=== PATIENT | female | born 1990 | race Caucasian/White ===

== ENCOUNTER 2017-01-20 16:05 | Outpatient (CLI) | payer BC ==
[~2017-01-20] VITALS: Ht 160 cm; Wt 99.0 kg
[~2017-01-20 16:05] MED LIST: AMT50 PO; MISC-696; MTR600X PO; PRENTAB26 PO
[2017-01-20 17:24] VITALS: Ht 160 cm; Wt 99.0 kg
--- NOTE | 2017-01-22 10:23 | EDITING REQUIRED CODING QUERY ---
DIAGNOSIS NEEDED To promote full compliance with coding requirements relating to patient care, physician participation is requested in all cases of commanding officer motorized squad uncertainty. Please assist us with the question(s) below: Coding Question: The patient received care in labor and delivery on 01/20/17 as noted within the record. Please document the diagnosis that is being addressed by the medication/treatment. Provider Response: DIAGNOSIS: Contractions, rule out labor Thank you for your assistance, Ester Cruz - Clinical Sciences Professor
== END 2017-01-20 17:28 | disposition home or self-care (01) ==
LOC: C.OPB 16:05 → C.LD 16:05 → C.OPB 17:28
PROVIDERS: ATTEND Obstetrics & Gynecology
DX: O62.9 Abnormality of forces of labor, unspecified (principal); Z3A.39 39 weeks gestation of pregnancy

== ENCOUNTER 2017-01-25 06:53 | Outpatient (CLI) | payer BC ==
[~2017-01-25] VITALS: Ht 157.5 cm; Wt 95.5 kg
[2017-01-25 07:09] VITALS: Ht 157.5 cm; Wt 95.5 kg
[2017-01-25] MEDS ORDERED: LACTATED RINGER'S 1000ML 500 ML IV ONE (07:50)
[2017-01-25] MEDS ORDERED: LACTATED RINGER'S 1000ML 1,000 ML IV SCH (07:50)
[2017-01-25] MEDS ORDERED: ONDANSETRON INJ 2 MG/ML 2 ML VIAL IV PRN (08:00)
[2017-01-25 08:47] LABS: BASO % 0.2 %; BASO ABS # 0.02 K/uL (0-0.2); COMPLETE YES; EOS % 0.3 %; HEMATOCRIT 31.9 % (37-47); IG% 0.3 %; LYMPH % 11.1 %; LYMPH ABS # 1.21 K/uL (1.2-3.4); MEAN CELL VOLUME 84.2 fL (80-100); MEAN CORPUSCULAR HGB CONC 33.2 g/dl (32-36); MEAN PLATELET VOLUME 10.9 fL (7.4-10.4); MONO % 5.5 %; NEUT % 82.6 %; PLATELET COUNT 228 K/uL (130-400); RED BLOOD COUNT 3.79 M/uL (4.2-5.4)
[2017-01-25 09:07] LABS: ALT/SGPT 14 U/L (12-78); AST/SGOT 12 U/L (15-37); BLOOD UREA NITROGEN 5 mg/dl (7-18); BUN/CREATININE RATIO 10.8 (10-20); CALCIUM 8.4 mg/dl (8.5-10.1); CARBON DIOXIDE 24 mmol/L (21-32); CHLORIDE 102 mmol/L (98-107); GLUCOSE 75 mg/dl (70-99); POTASSIUM 3.9 mmol/L (3.5-5.1); SODIUM 134 mmol/L (136-145); URIC ACID 4.2 mg/dl (2.6-7.2)
--- NOTE | 2017-01-28 08:15 | EDITING REQUIRED CODING QUERY ---
DIAGNOSIS NEEDED To promote full compliance with coding requirements relating to patient care, physician participation is requested in all cases of varnish thinner uncertainty. Please assist us with the question(s) below: Coding Question: The patient received care in labor and delivery on 01/25/17 as noted within the record. Please document the diagnosis that is being addressed by the medication/treatment. Provider Response: DIAGNOSIS: Contractions rule out labor, nausea Thank you for your assistance, Ester Cruz - Entertainment Reporter
== END 2017-01-25 12:47 | disposition home or self-care (01) ==
LOC: C.OPB 06:53 → C.LD 06:54 → C.OPB 12:47
PROVIDERS: ATTEND Obstetrics & Gynecology
DX: O62.9 Abnormality of forces of labor, unspecified (principal); Z3A.40 40 weeks gestation of pregnancy

== ENCOUNTER 2017-01-27 23:37 | Inpatient (IN) | payer BC ==
[~2017-01-27] VITALS: Ht 160 cm; Wt 94.5 kg
[~2017-01-27 23:37] MED LIST changes: -AMT50 PO; -MISC-696; -MTR600X PO
[2017-01-27] MEDS ORDERED: LACTATED RINGER'S 1000ML 1,000 ML IV PRN (23:54)
[2017-01-27] MEDS ORDERED: LACTATED RINGER'S 1000ML 1,000 ML IV SCH (23:54)
[2017-01-28 00:15] LABS: HEMATOCRIT 31.5 % (37-47); MEAN CELL VOLUME 84.2 fL (80-100); MEAN CORPUSCULAR HEMOGLOBIN 28.3 pg (25-34); MEAN CORPUSCULAR HGB CONC 33.7 g/dl (32-36); MEAN PLATELET VOLUME 10.7 fL (7.4-10.4); PLATELET COUNT 213 K/uL (130-400); RED BLOOD COUNT 3.74 M/uL (4.2-5.4); WHITE BLOOD COUNT 8.57 K/uL (4.8-10.8)
--- NOTE | 2017-01-28 00:16 | Progress Note ---
Progress Note Date of Service Jan 28, 2017. Progress Note Admit Note 26 F P1001 at 40.2 weeks admitted in active labor. Cervix 5-6/100/0/vertex. Membranes intact. GBS is negative. Will admit in labor. Patient is not planning for any medication or epidural.
--- NOTE | 2017-01-28 00:25 | Progress Note ---
Progress Note Date of Service Jan 28, 2017. Progress Note cervix /+1 T Cat1
[2017-01-28 00:26] VITALS: Ht 160 cm; Wt 94.5 kg
[2017-01-28] MEDS ORDERED: OXYTOCIN 30 UNITS/500ML NSS IV ONE (00:26)
[2017-01-28] MEDS ORDERED: HYDROCORTISONE ACETATE 25 MG SUPP PR PRN (01:00)
[2017-01-28] MEDS ORDERED: BENZOCAINE 20% AER SPR 82.5 GM CAN EXT PRN (01:00)
[2017-01-28] MEDS ORDERED: OXYCODONE/ACETAMINOPHEN 5-325 TAB PO PRN (01:00)
[2017-01-28] MEDS ORDERED: SUPERCREAM 0.870 % 15GM JAR EXT PRN (01:00)
[2017-01-28] MEDS ORDERED: OXYTOCIN 30 UNITS/500ML NSS IV PRN (01:00)
[2017-01-28] MEDS ORDERED: ACETAMINOPHEN 325 MG TAB PO PRN (01:00)
[2017-01-28] MEDS ORDERED: LACTATED RINGER'S 1000ML 1,000 ML IV SCH (01:00)
[2017-01-28] MEDS ORDERED: LANOLIN OINT EXT PRN ×2 (01:00)
[2017-01-28] MEDS ORDERED: IBUPROFEN 600 MG TAB PO PRN (01:00)
[2017-01-28] MEDS ORDERED: ACETAMINOPHEN/CODEINE 300/30MG TAB PO PRN ×2 (01:00)
--- NOTE | 2017-01-28 01:07 | Progress Note ---
Progress Note Date of Service Jan 28, 2017. Progress Note Delivery Note live female over intact perineum BUDDY with Apgars 8/9 nuchal cord x1 reduced at delivery. Delayed cord clamping followed by cord blood and spontaneous delivery of intact placenta. No tears. EBL 100 ml. Final sponge and instrument count are correct. Mom and baby stable.
[2017-01-28 03:40] VITALS: BP 121/80; PULSE 84; TEMP 36.7
[2017-01-28] MEDS ORDERED: INFLUENZA ADMINISTRATION CHARGE ONE (04:00)
[2017-01-28] MEDS ORDERED: INFLUENZA VIRUS QUAD VACCINE 0.5 ML SYR IM. ONE (04:00)
[2017-01-28 07:00] VITALS: BP 133/82; PULSE 82; TEMP 36.7; O2SAT 99
[2017-01-28] MEDS: PRENATAL VITAMIN TAB PO SCH (08:23)
[2017-01-28] MEDS: DOCUSATE SODIUM 100 MG CAP PO SCH ×2 (08:23→20:41)
[2017-01-28] MEDS: FERROUS SULFATE 325 MG TAB PO SCH (08:23)
[2017-01-28 11:40] VITALS: BP 134/84; PULSE 82; TEMP 36.8; O2SAT 97
[2017-01-28 16:00] VITALS: BP 146/90; PULSE 84; TEMP 36.9; O2SAT 97
[2017-01-28] MEDS ORDERED: BISACODYL 5 MG TABEC PO SCH (20:00)
[2017-01-28 20:45] VITALS: BP 128/86; PULSE 88; TEMP 36.9; O2SAT 97
[2017-01-28 23:05] VITALS: BP 127/87; PULSE 82; TEMP 36.7
[2017-01-29 06:49] LABS: HEMATOCRIT 29.6 % (37-47)
[2017-01-29] MEDS ORDERED: BISACODYL 10 MG SUPP PR PRN (07:00)
--- NOTE | 2017-01-29 07:02 | Discharge Instructions ---
Discharge Instructions Admission Reason for Admission: Check Labor Discharge Discharge Diagnosis / Problem: Vaginal delivery Discharge Goals Goal(s): Routine recovery after delivery Medications Continue Dispensed Medications: supercream, dermaplast, tucks, lansinoh Activity Recommendations Activity Limitations: per Instructions/Follow-up section . Instructions / Follow-Up Instructions / Follow-Up ACTIVITY RECOMMENDATIONS: * Gradual return to full activity over the next 2-3 weeks. * No lifting - nothing heavier than baby over the next 2-3 weeks. * Do not engage in vigorous exercise, sexual activity or sports until cleared by your physician. * Do not drive or operate any motorized equipment until cleared by your physician. * You may shower/bathe daily. BREAST CARE: If you are not breast feeding: * Wear a supportive bra 24 hours a day for one to two weeks. * Avoid stimulating your breasts and nipples as much as possible during the first few weeks after delivery. * When taking a shower, have the warm water hit your back, not breasts. * When your breasts feel full, apply ice packs. Usually three to four times a day helps ease the discomfort. * Take a mild pain medication (Tylenol/Motrin) when you are uncomfortable. If breast feeding: * Use breast milk to lubricate nipples. Lansinoh cream may be used for sore nipples. You do not need to remove cream prior to breast feeding. If using a different brand of cream, check the label for directions regarding removal of cream prior to nursing. * Wear a supportive bra. * If having problems with breasts or breast feeding, call a obiee consultant or your health care provider. EPISIOTOMY CARE: After delivery, if you have an episiotomy (stitches), the following steps will ease discomfort and aid healing. * For the first 24 hours after delivery, place ice packs next to your episiotomy to help reduce swelling. * After the first 24 hour-period, sitz baths, either portable or in the tub, are suggested. A shower with a shower arm sprayed over the episiotomy may be comforting. * Teresa care should be done after each voiding and bowel movement. Squirt warm water from a plastic bottle over the perineum (region of the body between the anus and urinary opening) and pat dry. * Use Dermoplast to ease discomfort. Shake container. Jackson directly over the episiotomy. * Place a Tucks on a clean sanitary pad next to your episiotomy. OVER THE COUNTER MEDICATION: * For discomfort or pain, you may use Acetaminophen (Tylenol), Ibuprofen (Advil ), or Naproxen (Aleve) following the package directions. * For constipation you may use Colace following the package directions. SPECIAL CARE INSTRUCTIONS: When you are discharged from the hospital, it is important for you to follow the instructions listed below: * During the first week at home, you should be able to care for yourself and your baby. In addition, the usual light household activities are encouraged. * Limit your activities to the way you feel. Do not try to clean the house or move furniture. Be sensible. * If you actively engage in sports and have done so up until the time of your delivery, you may resume these activities as soon as you feel able. This may take up to one month or even longer. Use good judgment. * Continue to take your vitamins for at least six weeks after the of your baby. * Your diet need not be limited unless you were on a special diet before your delivery. Breast-feeding mothers need around 2500 calories per day and at least 64-80 ounces of fluid per day (8 to 10 glasses). * You should eat foods from the four major food groups. Crash diets or fad diets are to be avoided. Eating lean meats, fresh fruits and vegetables, low-fat dairy products, high fiber foods and a regular exercise program, will help you get back to your pre- weight without putting your health at risk. * Constipation is sometimes a problem after delivery. Take a mild laxative as needed. If breast feeding, Milk of Magnesia is acceptable to use. You may use a suppository or Fleets enema if no episiotomy. * A daily shower or tub bath is suggested. Be sure to thoroughly and gently dry the perineum. * A bloody vaginal discharge will usually continue until around four weeks post . A small amount of bleeding may continue for as long as six weeks. Vaginal discharge changes from the bright red bleeding after delivery to pink then brownish and finally yellowish-pink before becoming white and disappearing. * Bleeding may increase with activity. Your first period may come in 4-8 weeks. If you are breast feeding, your period may be delayed even longer. * [place] (sex) can begin whenever both you and your partner feel comfortable and do not have any form of genital infection. It is recommended that you wait until after your return appointment and discuss with your physician. If you have questions, please talk to your health care practitioner. A condom should be used to prevent infection and . * Foreplay, gentle intercourse and lubrication is very important the first several times to prevent pain. A water-based lubricant such as K-Y jelly or Astroglide may be used. * Tampons may be used six weeks after delivery. * Douching should be avoided for 6 weeks after delivery. * If you have RH negative blood and your baby is RH positive, you will receive RHOGAM by injection prior to discharge. The nurse will give you a card to keep with you that has the date and place that you received RHOGAM after delivery. * During your care, you had a Rubella screen done to check for the presence of rubella antibodies in your blood. If your test was negative, you will receive a Rubella vaccine prior to discharge. This vaccine may cause a fever, soreness at the injection site and flu-like symptoms. If these symptoms persist, notify your health care practitioner. is not advised for three months after a Rubella vaccine. There is a higher chance of having a baby with defects if conceived within three months of getting the vaccine. * If you were discharged 24 hours from delivery or before 48 hours: Visiting nurses will come to your home 48 hours after discharge to assess you and your baby. The visiting nurse will meet with you while you are in the hospital to arrange a time and get directions to your home. * Verbalizes understanding of car seat law as reviewed with patient nursing. * Car Seat hand-out given and reviewed with patient by nursing. * Shaken baby information reviewed with patient by nursing. Call you doctor if: * Heavy bleeding (saturating several pads an hour) or passing clots the size of your fist. * A fever >101 degrees F (38.3 degrees C) on two occasions four hours apart and/or chills. * Unusual pain in the pelvic or vaginal areas. * "Baby Blues" lasting longer than two weeks. If you have any questions or concerns, call your health care practitioner at . FOLLOW-UP VISIT: * Please call the office at to schedule a 6 week examination. It is important you keep this appointment. * It is important for you to make arrangements for either yearly or twice yearly check-ups thereafter. Current Hospital Diet Patient's current hospital diet: Regular OB Diet Discharge Diet Recommended Diet: Regular OB Diet Pending Studies Studies pending at discharge: no Medical Emergencies . Who to Call and When: Medical Emergencies: If at any time you feel your situation is an emergency, please call 911 immediately. . Non-Emergent Contact Non-Emergency issues call your: Primary Care Provider, Department Store Manager . . "Provider Documentation" section prepared by Aman Toledo. VTE Core Measure Inpt VTE Proph given/why not?: Treatment not indicated
--- NOTE | 2017-01-29 07:03 | OB/GYN Progress Note ---
SENIOR ACCOUNTANT Progress Note Date of Service Jan 29, 2017. Subjective conversation w/ patient, physical exam Ambulation: ambulating normally Voiding: no voiding problems Passing Gas: Yes Diet Tolerance: Regular Diet Lochia: Small Pain: 12/10 Notes: Doing well, no concerns. Tolerating regular diet. Ambulating without difficulty. Lochia minimal. Would like to go home today. Objective Vital Signs Date Time Temp Pulse Resp B/P Pulse Ox O2 Delivery O2 Flow Rate FiO2 01/28/17 23:05 Room Air 01/28/17 23:05 36.7 82 18 127/87 Room Air 01/28/17 20:45 36.9 88 20 128/86 97 Room Air 01/28/17 16:00 97 Room Air 01/28/17 16:00 36.9 84 16 146/90 97 Room Air 01/28/17 11:40 36.8 82 18 134/84 97 Room Air 01/28/17 11:40 97 Room Air 01/28/17 07:40 Room Air Physical Exam General Appearance: WELL-APPEARING Respiratory/Chest: chest non-tender, lungs clear Cardiovascular: regular rate, rhythm Abdomen: normal bowel sounds, soft Fundus: Firm Extremities: normal range of motion, non-tender, no calf tenderness Laboratory Results Last 24 Hours Test 01/29/17 06:30 Hemoglobin 10.0 g/dL Hematocrit 29.6 % Assessment and Plan Post- Day Number: 1 Continue Routine Care: -D/C home today -F/U in 6 weeks in office
[2017-01-29 07:05] VITALS: BP 142/82; PULSE 86; TEMP 36.8; O2SAT 98
[2017-01-29] MEDS: PRENATAL VITAMIN TAB PO SCH (08:09)
[2017-01-29] MEDS: DOCUSATE SODIUM 100 MG CAP PO SCH (08:09)
[2017-01-29] MEDS: FERROUS SULFATE 325 MG TAB PO SCH (08:09)
[2017-01-29] MEDS ORDERED: MEASLES, MUMPS & RUBELLA VIRUS VIAL SQ. ONE (09:00)
[2017-01-29] MEDS ORDERED: DIPHTHERIA/TETANUS/PERTUSSIS 0.5 ML SYR/VIAL IM. ONE (09:00)
[2017-01-29] MEDS ORDERED: VARICELLA VIRUS VACCINE LIVE 1 VIAL SQ. ONE (09:00)
[2017-01-29 11:40] VITALS: BP_DIAS 87; PULSE 86; TEMP 36.8
== END 2017-01-29 11:55 | disposition home or self-care (01) | DRG 775 ==
LOC: C.OPB 23:37 → C.LD 23:37 → C.OPB 23:51 → C.OBG 01-28 03:25
PROVIDERS: ADMIT Obstetrics & Gynecology; ATTEND Obstetrics & Gynecology
PROC: 10E0XZZ Delivery of Products of Conception, External Approach (ICD-10-PCS; principal; 2017-01-28)
DX: O48.0 Post-term pregnancy (principal); O69.81X0 Labor and delivery complicated by cord around neck, without compression, not applicable or unspecified; Z23 Encounter for immunization; Z3A.40 40 weeks gestation of pregnancy; Z37.0 Single live birth

== ENCOUNTER 2020-06-06 07:33 | Inpatient (IN) ==
[2020-06-06] MEDS ORDERED: OXYTOCIN 30 UNITS/500 ML BAG IV PRN ×3 (08:53→17:09)
--- NOTE | 2020-06-06 08:53 | Obstetrical Progress Note ---
Date of Service June 06, 2020 Assessment & Plan Admission and Anticipated Discharge Date Admission Date: June 06, 2020 Subjective met pt and spouse here for indcution for prolonged gestation FHR; CAT1 Ctx; Minimal VE; 1/thick/-2 Lutz cath placed in cervix and filled with 30 cc saline pt tolerated procedure well will augment with Pitocin Results & Data ([facility]) Vital Signs (Past 12 Hours) Vital Signs Temp Pulse Resp BP 06/06/20 08:01 94 H 130/81 06/06/20 07:44 36.8 C 114 H 20 134/93
[2020-06-06 09:12] LABS: Hemoglobin 9.9 g/dL (12.0-16.0); Mean Corpuscular Hemoglobin 28.4 pg (25-34); Mean Corpuscular Volume 86.2 fL (80-100); Platelet Count 215 K/uL (130-400); RDW Coefficient of Variation 13.4 % (11.5-14.5); Red Blood Count 3.48 M/uL (4.2-5.4); White Blood Count 6.28 K/uL (4.8-10.8)
[2020-06-06] MEDS: LACTATED RINGER'S 1,000 ML IV PRN ×2 (09:17→16:25)
[2020-06-06 09:30] LABS: Albumin Level 2.5 gm/dl (3.4-5.0); BUN Creatinine Ratio 9.3 (10-20); Calcium 8.8 mg/dl (8.5-10.1); Creatinine Clr Calc Pharmacy 143.3 ml/min; Est GFR (African American) 139.8; Est GFR (Non-African American) 120.6
[2020-06-06 09:33] LABS: Albumin Globulin Ratio 0.6 (0.9-2); Bilirubin,Total 0.2 mg/dl (0.2-1); Total Protein 6.5 gm/dl (6.4-8.2)
--- NOTE | 2020-06-06 16:02 | Obstetrical Progress Note ---
Date of Service June 06, 2020 Assessment & Plan Admission and Anticipated Discharge Date Admission Date: June 06, 2020 Subjective pt doing well FHR; CAT! CTX. 1-3mins VE; /-2 Pit; 2mu AROM with Amnio hook - Clear fluid Results & Data ([facility]) Vital Signs (Past 12 Hours) Vital Signs Temp Pulse Resp BP 06/06/20 15:08 36.8 C 92 H 18 134/87 06/06/20 13:54 99 H 145/97 H 06/06/20 12:55 90 133/91 06/06/20 12:00 81 153/99 H 06/06/20 10:59 36.9 C 83 20 131/92 06/06/20 10:03 82 135/85 06/06/20 09:17 89 123/85 06/06/20 08:01 94 H 130/81 06/06/20 07:44 36.8 C 114 H 20 134/93
[2020-06-06] MEDS ORDERED: BUTORPHANOL TARTRATE 1 MG/ML VIAL IV PRN (16:17)
[2020-06-06] MEDS ORDERED: miSOPROStoL 200 MCG TAB ONE (16:57)
[2020-06-06] MEDS ORDERED: METHYLERGONOVINE MALEATE 0.2 MG/ML AMP ONE (16:58)
[2020-06-06] MEDS ORDERED: bisacodyL 10 MG SUPP PR PRN (17:09)
[2020-06-06] MEDS ORDERED: IBUPROFEN 600 MG TAB PO PRN (17:09)
[2020-06-06] MEDS ORDERED: miSOPROStoL 200 MCG TAB PR ONE (17:09)
[2020-06-06] MEDS ORDERED: SUPERCREAM 0.870% 15 GM JAR EXT PRN (17:09)
[2020-06-06] MEDS ORDERED: BENZOCAINE 20% AER SPR 82.5 GM CAN EXT PRN (17:09)
[2020-06-06] MEDS ORDERED: HYDROCORTISONE ACETATE 25 MG SUPP PR PRN (17:09)
[2020-06-06] MEDS ORDERED: DIPHTHERIA/TETANUS/PERTUSSIS 0.5 ML SYR/VIAL IM ONE (17:09)
[2020-06-06] MEDS ORDERED: ACETAMINOPHEN 325 MG TAB PO PRN (17:09)
--- NOTE | 2020-06-06 18:04 | Delivery Summary ---
DATE OF OPERATION: 06/06/2020 DELIVERY NOTE: The patient delivered a live in right occiput anterior presentation. There was a loose nuchal cord, which was easily reduced. Infant was delivered, placed on mother's abdomen. Delayed cord clamp was performed after 1 minute. The patient's weight and Apgars in the pediatric record. Cord blood was obtained. Placenta was spontaneously delivered. Inspection of the placenta shows a normal grossly looking placenta with 3-vessel cord. Inspection of the perineum showed no laceration or tears. Rectal exam showed good sphincter tone. Estimated blood loss is 150 mL. The patient and baby are doing well in recovery. Good hemostasis. All instruments and sponges are accounted for x2. The patient is stable in recovery. I attest to the content of the Intraoperative Record and any orders documented therein. Any exception s are noted below.
[2020-06-06] MEDS: DOCUSATE SODIUM 100 MG CAP PO SCH (21:14)
[2020-06-07 07:20] LABS: Hematocrit (blood only) 28.8 % (37-47); Hemoglobin 9.4 g/dL (12.0-16.0); Mean Corpuscular Hgb Conc 32.6 g/dL (32-36); Mean Corpuscular Volume 85.7 fL (80-100); Platelet Count 202 K/uL (130-400); RDW Coefficient of Variation 13.7 % (11.5-14.5); RDW Standard Deviation 42.5 fL (36.4-46.3); Red Blood Count 3.36 M/uL (4.2-5.4); White Blood Count 12.27 K/uL (4.8-10.8)
[2020-06-07] MEDS ORDERED: PRENATAL VITAMIN 1 TAB PO SCH (08:00)
[2020-06-07] MEDS: DOCUSATE SODIUM 100 MG CAP PO SCH (08:43)
--- NOTE | 2020-06-07 11:26 | Obstetrical Progress Note ---
Date of Service June 07, 2020 Assessment & Plan Admission and Anticipated Discharge Date Admission Date: June 06, 2020 Subjective Doing well POD#1 plans for d/c Physical Exam Constitutional: WD/WN, vitals as above comfortable Abdomen soft and non- tender fundus firm no edema neg Biju's for d/c home Results & Data ([facility]) Vital Signs (Past 12 Hours) Vital Signs Temp Pulse Resp BP Pulse Ox 06/07/20 08:30 36.9 C 100 H 21 125/86 98 06/07/20 03:25 37.1 C 90 18 128/82 Laboratory Results Laboratory Results - last 72 hr 06/06/20 06/06/20 06/07/20 09:00 09:00 07:02 WBC 6.28 12.27 H RBC 3.48 L 3.36 L Hgb 9.9 L 9.4 L Hct 30.0 L 28.8 L MCV 86.2 85.7 MCH 28.4 28.0 MCHC 33.0 32.6 RDW Std Deviation 42.0 42.5 RDW Coeff of Bouchra 13.4 13.7 Plt Count 215 202 MPV 11.0 H 11.0 H Sodium 137 Potassium 4.0 Chloride 107 Carbon Dioxide 22 Anion Gap 8.0 BUN 6 L Creatinine 0.64 Est Cr Clr Drug Dosing 143.3 Est GFR ( Amer) 139.8 Est GFR (Non-Af Amer) 120.6 BUN/Creatinine Ratio 9.3 L Glucose 114 H Calcium 8.8 Total Bilirubin 0.2 AST 12 L ALT 16 Alkaline Phosphatase 197 H Total Protein 6.5 Albumin 2.5 L Globulin 4.0 Albumin/Globulin Ratio 0.6 L
[2020-06-07] MEDS ORDERED: bisacodyL 5 MG TABEC PO SCH (20:00)
== END 2020-06-07 17:45 | disposition home or self-care (01) | DRG 807 ==
LOC: 4S1 07:33 → 4S2 19:19